=== PATIENT | male | born 1995 | race Caucasian/White ===

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

== ENCOUNTER 2018-07-28 10:05 | Emergency (ER) | payer MEDICAID, OTHER ==
[2018-07-28 10:23] VITALS: BP 133/92; TEMP 97.4; BMI 40.5
[2018-07-28] MEDS: ATIVAN IM STA (10:43)
[2018-07-28] MEDS: SODIUM CHLORIDE 1,000 ML IV STA ×2 (10:43→12:18)
--- NOTE | 2018-07-28 11:06 | DI ---
Examination: Chest AP upright portable. Clinical history: Cardiac palpitations, chest discomfort, meth used. The heart and mediastinum appear intact. Lungs appear adequately aerated. No consolidative infiltra te or effusion. No vascular congestion or asymmetric pleural thickening. Impression: 1. No acute cardiopulmonary radiographic abnormality.
--- NOTE | 2018-07-28 11:36 | ED.PDOC ---
General ED Provider: Dr. KESHAWN GUTIERREZ Chief Complaint: Palpitations Stated Complaint: palpitation Time Seen by Physician: 10:10 (seen with nursing staff) Mode of Arrival: Walk-In Information Source: Patient Exam Limitations: No limitations Nursing and Triage Documentation Reviewed and Agree: Yes Does patient meet sepsis criteria?: No System Inflammatory Response Syndrome: Not Applicable Sepsis Protocol: For patient's 13 years and over: Temp is 96.8 and below OR 101 and greater Pulse >90 BPM Resp >20/minute Acutely Altered Mental Status Are patient's symptoms suggestive of a new infection, such as: -Pneumonia -Skin, Soft Tissue -Endocarditis -UTI -Bone, Joint Infection -Implantable Device -Acute Abdominal Infection -Wound Infection -Meningitis -Blood Stream Catheter Infection -Unknown Cardiovascular Complaint Exam - Palpitations Complaint/Exam Onset/Duration: this morning Symptoms Are: Still present Timing: Constant Initial Severity: Moderate Current Severity: Moderate Character: Reports: Fast Aggravating: Reports: None (admitted smoking marijuana, snorted some meth 1day ago) Associated Signs and Symptoms: Denies: Lightheadedness, Dizziness, Syncope, Chest pain, Shortness of breath, Diaphoresis, Nausea, Vomiting Related Surgical History: Reports: None Cardiac Risk Factors: Reports: None Pulmonary Embolism Risk Factors: Reports: None Atrial Fibrillation Risk Factors: Reports: None Differential Diagnoses: Cardiomyopathy, CAD, Other (meth related ) Quality Indicators for AMI: EKG in 10min. Quality Indicators for Cardiac Chest Pain: EKG in 10min. Quality Indicator For Non-Traumatic Chest Pain/Syncope: EKG Performed Review of Systems - Review Of Systems Constitutional: Reports: No symptoms Eyes: Reports: No symptoms Ears, Nose, Mouth, Throat: Reports: No symptoms Respiratory: Reports: No symptoms Cardiac: Reports: Palpitations GI: Reports: No symptoms : Reports: No symptoms Musculoskeletal: Reports: No symptoms Skin: Reports: No symptoms Neurological: Reports: No symptoms Endocrine: Reports: No symptoms Hematologic/Lymphatic: Reports: No symptoms All Other Systems: Reviewed and Negative Past Medical History - Past Medical History Previously Healthy: Yes Endocrine: Reports: None Cardiovascular: Reports: None Respiratory: Reports: None Hematological: Reports: None Gastrointestinal: Reports: None Genitourinary: Reports: None Neuro/Psych: Reports: None Musculoskeletal: Reports: None Cancer: Reports: None - Surgical History General Surgical History: Reports: None - Family History Family History: Reports: None - Social History Smoking Status: Current some day smoker Hx Substance Use: Yes Alcohol Screening: Occasionally - Immunizations Tetanus Shot up to Date: Yes Physical Exam - Physical Exam Appearance: Well-appearing, No pain distress, Well-nourished Eyes: FORREST, EOMI, Conjunctiva clear ENT: Ears normal, Nose normal, Oropharynx normal Respiratory: Airway patent, Breath sounds clear, Breath sounds equal, Respirations nonlabored Cardiovascular: Tachycardia GI/: Soft, Nontender, No masses, Bowel sounds normal, No Organomegaly Musculoskeletal: Normal strength, ROM intact, No edema, No calf tenderness Skin: Warm, Dry, Normal color Neurological: Sensation intact, Motor intact, Reflexes intact, Cranial nerves intact, Alert, Oriented Psychiatric: Affect appropriate, Mood appropriate Critical Care Note - Critical Care Note Total Time (mins): 0 Course - Course Hematology/Chemistry: 07/28/18 10:15 07/28/18 14:25 Orders, Labs, Meds: Lab Review 07/28/18 07/28/18 07/28/18 10:15 10:15 10:15 WBC 17.93 H RBC 5.81 Hgb 15.9 Hct 48.3 MCV 83.1 MCH 27.4 MCHC 32.9 RDW Coeff of Grace 13.1 Plt Count 383 Immature Gran % (Auto) 0.4 Neut % (Auto) 67.4 Lymph % (Auto) 23.1 Coleman % (Auto) 8.1 Eos % (Auto) 0.6 Baso % (Auto) 0.4 Immature Gran # (Auto) 0.1 Neut # (Auto) 12.1 H Lymph # (Auto) 4.2 H Coleman # (Auto) 1.5 Eos # (Auto) 0.1 Baso # (Auto) 0.1 Sodium 139.6 Potassium 2.98 L Chloride 102.9 Carbon Dioxide 18.0 L Anion Gap 21.68 BUN 14.8 Creatinine 0.98 Estimated GFR (MDRD) 97.00 BUN/Creatinine Ratio 15.10 Glucose 130.3 H Calcium 10.69 H Total Bilirubin 1.06 AST 29.5 ALT 24.6 Alkaline Phosphatase 71.8 Total Creatine Kinase 208.8 H CK-MB (CK-2) 2.090 CK-MB (CK-2) % 1.0000 Troponin I < 0.012 Total Protein 8.67 H Albumin 5.16 H Globulin 3.51 Albumin/Globulin Ratio 1.47 TSH Free T4 Urine Opiates Screen Ur Oxycodone Screen Urine Methadone Screen Ur Propoxyphene Screen Ur Barbiturates Screen U Tricyclic Antidepress Ur Phencyclidine Scrn Ur Amphetamine Screen U Methamphetamines Scrn U Benzodiazepines Scrn Urine Cocaine Screen U Cannabinoids Screen 07/28/18 07/28/18 07/28/18 10:30 10:30 13:20 WBC RBC Hgb Hct MCV MCH MCHC RDW Coeff of Grace Plt Count Immature Gran % (Auto) Neut % (Auto) Lymph % (Auto) Coleman % (Auto) Eos % (Auto) Baso % (Auto) Immature Gran # (Auto) Neut # (Auto) Lymph # (Auto) Coleman # (Auto) Eos # (Auto) Baso # (Auto) Sodium Potassium Chloride Carbon Dioxide Anion Gap BUN Creatinine Estimated GFR (MDRD) BUN/Creatinine Ratio Glucose Calcium Total Bilirubin AST ALT Alkaline Phosphatase Total Creatine Kinase CK-MB (CK-2) CK-MB (CK-2) % Troponin I Total Protein Albumin Globulin Albumin/Globulin Ratio TSH 2.130 Free T4 2.19 Urine Opiates Screen Negative Ur Oxycodone Screen Negative Urine Methadone Screen Negative Ur Propoxyphene Screen Negative Ur Barbiturates Screen Negative U Tricyclic Antidepress Negative Ur Phencyclidine Scrn Negative Ur Amphetamine Screen Positive U Methamphetamines Scrn Positive U Benzodiazepines Scrn Negative Urine Cocaine Screen Negative U Cannabinoids Screen Positive 07/28/18 14:25 WBC RBC Hgb Hct MCV MCH MCHC RDW Coeff of Grace Plt Count Immature Gran % (Auto) Neut % (Auto) Lymph % (Auto) Coleman % (Auto) Eos % (Auto) Baso % (Auto) Immature Gran # (Auto) Neut # (Auto) Lymph # (Auto) Coleman # (Auto) Eos # (Auto) Baso # (Auto) Sodium 140.2 Potassium 3.94 Chloride 107.1 H Carbon Dioxide 16.8 L Anion Gap 20.24 BUN 14.1 Creatinine 0.77 Estimated GFR (MDRD) 128.00 BUN/Creatinine Ratio 18.31 Glucose 101.4 Calcium 10.40 H Total Bilirubin AST ALT Alkaline Phosphatase Total Creatine Kinase CK-MB (CK-2) CK-MB (CK-2) % Troponin I Total Protein Albumin Globulin Albumin/Globulin Ratio TSH Free T4 Urine Opiates Screen Ur Oxycodone Screen Urine Methadone Screen Ur Propoxyphene Screen Ur Barbiturates Screen U Tricyclic Antidepress Ur Phencyclidine Scrn Ur Amphetamine Screen U Methamphetamines Scrn U Benzodiazepines Scrn Urine Cocaine Screen U Cannabinoids Screen Orders Category Date Time Status EKG-(ED ONLY) Stat CARDIO 07/28/18 10:27 Completed BMP [BASIC METABOLIC PANEL] Stat LAB 07/28/18 14:25 Completed CBC W/ AUTO DIFF Stat LAB 07/28/18 10:15 Completed COMPREHENSIVE METABOLIC PANEL Stat LAB 07/28/18 10:15 Completed CREATINE KINASE Stat LAB 07/28/18 10:15 Completed FREE T4 (FREE THYROXINE) Stat LAB 07/28/18 10:30 Completed THYROID STIMULATING HORMONE Stat LAB 07/28/18 10:30 Completed TROPONIN I Stat LAB 07/28/18 10:15 Completed URINE DRUG SCREEN (RAPID FOR ED) [DRUG SCREEN, URINE, LAB 07/28/18 13:20 Completed RAPID] Stat Lorazepam [Ativan] MEDS 07/28/18 10:37 Discontinued 1 mg IM ONCE STA Metoprolol Tartrate [Lopressor] MEDS 07/28/18 11:32 Discontinued 5 mg IVP ONCE STA Potassium Chloride [K-Dur] MEDS 07/28/18 11:32 Discontinued 40 meq PO ONCE STA Potassium Chloride [Potassium Chloride Premix Run] 10 MEDS 07/28/18 11:32 Discontinued meq Premix 100 ml Water 1 bag IV ONCE Potassium Chloride [Potassium Chloride Premix Run] 100 MEDS 07/28/18 11:35 Discontinued ml IV .STK-MED Sodium Chloride 0.9% [Sodium Chloride] 1,000 ml MEDS 07/28/18 12:12 Active IV 125 mls/hr Sodium Chloride 0.9% [Sodium Chloride] 1,000 ml MEDS 07/28/18 10:28 Discontinued IV BOLUS CHEST, 1V AP ONLY Stat RADS 07/28/18 10:27 Completed Medications Generic Name Dose Route Start Last Admin Trade Name Freq PRN Reason Stop Dose Admin Sodium Chloride 1,000 mls @ 125 mls/hr 07/28/18 12:12 07/28/18 12:18 Sodium Chloride IV 07/28/18 20:11 125 mls/hr .Q8H STA Administration Discontinued Medications Generic Name Dose Route Start Last Admin Trade Name Freq PRN Reason Stop Dose Admin Sodium Chloride 1,000 mls @ 1,000 mls/hr 07/28/18 10:28 07/28/18 10:43 Sodium Chloride IV 07/28/18 11:27 1,000 mls/hr BOLUS STA Administration Potassium Chloride 10 meq/ 100 mls @ 100 mls/hr 07/28/18 11:32 07/28/18 11:48 Sterile Water IV 07/28/18 12:31 100 mls/hr ONCE STA Administration Lorazepam 1 mg 07/28/18 10:37 07/28/18 10:43 Ativan IM 07/28/18 10:38 1 mg ONCE STA Administration Metoprolol Tartrate 5 mg 07/28/18 11:32 07/28/18 11:37 Lopressor IVP 07/28/18 11:33 5 mg ONCE STA Administration Potassium Chloride 40 meq 07/28/18 11:32 07/28/18 11:47 K-Dur PO 07/28/18 11:33 40 meq ONCE STA Administration Vital Signs: Temp Pulse Resp BP Pulse Ox 07/28/18 10:07 97.4 F L 159 H 16 133/92 H 100 EALN Risk Score ELAN Risk Score: Risk Score Odds of by 30D 0 0.1 (0.1-0.2) 1 0.3 (0.2-0.3) 2 0.4 (0.3-0.5) 3 0.7 (0.6-0.9) 4 1.2 (1.0-1.5) 5 2.2 (1.9-2.6) 6 3.0 (2.5-3.6) 7 4.8 (3.8-6.1) Departure - Departure Time of Disposition: 15:03 Disposition: HOME SELF-CARE Discharge Problem: Methamphetamine abuse, Palpitations Instructions: Methamphetamine Abuse (ED) Condition: Good Pt referred to PMD for follow-up: Yes IPMP verified?: No Additional Instructions: Please call your Family Physician as soon as possible to schedule a follow-up appointment. DONT DO DRUGS. DRUGS WILL KILL YOU. Allergies/Adverse Reactions: Allergies No Known Allergies Allergy (Verified 07/28/18 10:27) Home Medications: Ambulatory Orders 1 [No Reported Medications] 0 mg PO DAILY 08/20/12 Disposition Discussed With: Patient
[2018-07-28] MEDS: LOPRESSOR IVP STA (11:37)
[2018-07-28] MEDS: K-DUR PO STA (11:47)
[2018-07-28] MEDS: POTASSIUM CHLORIDE PREMIX RUN 10 MEQ in PREMIX 100 ML WATER 1 BAG IV STA (11:48)
[2018-07-28] MEDS: POTASSIUM CHLORIDE PREMIX RUN 100 ML IV ONE (11:49)
== END 2018-07-28 15:18 | disposition home or self-care (01) ==
LOC: ED 10:05
DX: F15.10 Other stimulant abuse, uncomplicated (principal); R00.2 Palpitations; F17.210 Nicotine dependence, cigarettes, uncomplicated
CPT/HCPCS: 36415; 80048; 80053; 80306; 82550; 82553; 84439; 84443; 84484; 85025; 93005; 93010; 96361; 96365; 96374; 96375; 99284

== ENCOUNTER 2018-08-16 18:54 | Emergency (ER) ==
[2018-08-16 18:59] VITALS: TEMP 99.3; BMI 40.0
--- NOTE | 2018-08-16 19:32 | ED.PDOC ---
General ED Provider: Dr. RAMAN RICE Chief Complaint: Extremity Swelling/Pain Stated Complaint: thinks that his left lower leg is swollen. Denies any injury Time Seen by Physician: 19:30 Mode of Arrival: Walk-In Information Source: Patient, Nurse Exam Limitations: No limitations Nursing and Triage Documentation Reviewed and Agree: Yes Does patient meet sepsis criteria?: No System Inflammatory Response Syndrome: Not Applicable Sepsis Protocol: For patient's 13 years and over: Temp is 96.8 and below OR 101 and greater Pulse >90 BPM Resp >20/minute Acutely Altered Mental Status Are patient's symptoms suggestive of a new infection, such as: -Pneumonia -Skin, Soft Tissue -Endocarditis -UTI -Bone, Joint Infection -Implantable Device -Acute Abdominal Infection -Wound Infection -Meningitis -Blood Stream Catheter Infection -Unknown Review of Systems - Review Of Systems Constitutional: Reports: No symptoms Eyes: Reports: No symptoms Ears, Nose, Mouth, Throat: Reports: No symptoms Respiratory: Reports: No symptoms Cardiac: Reports: No symptoms GI: Reports: No symptoms : Reports: No symptoms Musculoskeletal: Reports: No symptoms Skin: Reports: No symptoms Neurological: Reports: Anxiety Endocrine: Reports: No symptoms Hematologic/Lymphatic: Reports: No symptoms All Other Systems: Reviewed and Negative Past Medical History - Past Medical History Previously Healthy: Yes Endocrine: Reports: None Cardiovascular: Reports: None Respiratory: Reports: None Hematological: Reports: None Gastrointestinal: Reports: None Genitourinary: Reports: None Neuro/Psych: Reports: Anxiety Musculoskeletal: Reports: None Cancer: Reports: None Other Pertinent Past Medical History: obesity - Surgical History General Surgical History: Reports: None - Family History Family History: Reports: None - Social History Smoking Status: Current some day smoker Hx Substance Use: Yes Alcohol Screening: None - Immunizations Tetanus Shot up to Date: Yes Physical Exam - Physical Exam Appearance: Obese Respiratory: Airway patent, Breath sounds clear, Breath sounds equal, Respirations nonlabored Cardiovascular: RRR, Pulses normal, No rub, No murmur GI/: Soft, Nontender, No masses, Bowel sounds normal, No Organomegaly Musculoskeletal: Normal strength, ROM intact, No edema, No calf tenderness Skin: Warm, Dry, Normal color Neurological: Sensation intact, Motor intact, Reflexes intact, Cranial nerves intact, Alert, Oriented Psychiatric: Anxious Critical Care Note - Critical Care Note Total Time (mins): 0 Course - Course Vital Signs: Temp Pulse Resp BP Pulse Ox 06/26/19 19:15 112 H 135/83 08/16/18 18:55 99.3 F 138 H 20 152/87 H 98 Departure - Departure Time of Disposition: 19:30 Disposition: HOME SELF-CARE Discharge Problem: Anxiety Muscle strain of left lower leg Qualifiers: Encounter type: initial encounter Qualified Code(s): S86.912A - Strain of unspecified muscle(s) and tendon(s) at lower leg level, left leg, initial encounter Instructions: Muscle Strain (ED), Anxiety (ED) Condition: Good Pt referred to PMD for follow-up: Yes IPMP verified?: No Additional Instructions: Take Tylenol OTC as needed for pain Follow up with your clinic in 3 days Allergies/Adverse Reactions: Allergies No Known Allergies Allergy (Verified 07/28/18 10:27) Home Medications: Ambulatory Orders 1 [No Reported Medications] 0 mg PO DAILY 08/20/12 Disposition Discussed With: Patient, Family
[2018-08-16 19:37] VITALS: BP 135/83
== END 2018-08-16 19:38 | disposition home or self-care (01) ==
LOC: ED 18:54
DX: S86.912A Strain of unspecified muscle(s) and tendon(s) at lower leg level, left leg, initial encounter (principal); F41.9 Anxiety disorder, unspecified; F17.210 Nicotine dependence, cigarettes, uncomplicated
CPT/HCPCS: 99282